=== PATIENT | female | born 1990 | race Caucasian/White ===

== ENCOUNTER 2021-05-14 05:53 | Inpatient (IN) | payer OTHER, SELFPAY ==
[2021-05-14] VITALS (12 sets, daily range): BP systolic 123–162; BP diastolic 80–109; PULSE 70–125; RESP 16–18; TEMP 36.3–37.3; O2SAT 96–103; BMI 40.7
--- NOTE | 2021-05-14 | GALL_PTH ---
PATIENT: KALEIGH BENNETT LOC: MS3 U#:[id number] AGE/SX: 30/F ROOM: [facility] [place] RE05/14/[address]: Dr. Nacho Singh MD : 1990 BED: 1 DIS: 05/15/2021 SPEC #: [id number] RECD: 05/15/21 08:16 STATUS: NICHOLE GANT #: [id number] AUGIE: 05/14/21 00:[address]: Nacho Singh DEPT: SURGICAL PATHOLOGY RECD BY: Masoud Noble ENTERED: 05/15/21 11:12 SP TYPE: GIANNI KENDRICK DR: Dr. Dharmesh Arreola, DO No Primary Care Phys Tissues: Gallbladder, NOS Procedures: Surgery Specimen Level III HEADER OPERATION: Laparoscopic cholecystectomy PRE-OP DIAGNOSIS: Cholelithiasis with choledocholithiasis TISSUE SUBMITTED: Gallbladder MICROSCOPIC DIAGNOSIS Gallbladder, cholecystectomy: Chronic cholecystitis, cholelithiasis and cholesterolosis. SJ:chacorta 05/16/2021 MICROSCOPIC DESCRIPTION Slides are reviewed. GROSS DESCRIPTION Received is one container labeled with the patient's name and designated gallbladder. The specimen consists of a gallbladder measuring 7.5 cm in length and 2.5 cm in diameter. The external surface is pink-bowman, smooth and glistening for the most part. Focally it is granular, hemorrhagic and contains cautery artifact. The gallbladder contains yellow mucoid bile and multiple brownish-green stones measuring in aggregate 4 x 4 x 1.5 cm and 0.2 to 1.5 cm in greatest dimension. The mucosa is bile-stained and without any mass lesions. The gallbladder wall measures up to 0.2 cm in thickness. The mucosa also shows several yellowish streaks consistent with cholesterolosis. A focal area also shows increased amount of subserosal fat. [employer] sections from the gallbladder and the cystic duct are submitted in one cassette. / DESTINY:chacorta 05/15/2021 TC:3 CPT: 06852
--- NOTE | 2021-05-14 06:07 | US_ITS ---
EXAM: US ABDOMEN LIMITED, RIGHT UPPER QUADRANT : 1990 CLINICAL INDICATION: PAIN TECHNIQUE: Real-time ultrasound of the right upper quadrant with image documentation. This report was created using [employer] report generation technology. COMPARISON: None. FINDINGS: LIVER: Unremarkable. There is normal echotexture. No focal hepatic lesion. No intrahepatic biliary ductal dilation. GALLBLADDER: Multiple stones in the gallbladder. No gallbladder wall thickening is demonstrated. No pericholecystic fluid. Negative sonographic Oneal's sign. COMMON BILE DUCT: Prominent common bile duct measuring 7 mm. PANCREAS: Unremarkable as visualized. No focal abnormality is demonstrated in the pancreas. No pancreatic ductal dilatation. RIGHT KIDNEY: Unremarkable. There is no hydronephrosis. No shadowing calculus. No focal lesion or perinephric collection is demonstrated. US/Gallbladder IMPRESSION: 1. Prominent common bile duct measuring 7 mm. Correlate for any laboratory evidence of acute biliary obstruction which could indicate a distal common duct stone. 2. Cholelithiasis but no sonographic evidence of acute cholecystitis. at 0742 Reported and signed by: Zheng Pepe MD Electronically Signed: Zheng Pepe MD at 7:41 EST ,
[2021-05-14 06:22] LABS: Absolute Lymphocyte Count 0.96 X10^3/uL (0.83-4.51); Absolute Neutrophil Count 3.5 X10^3/uL (2.0-7.7); Basophil# 0.02 X10^3/uL; Basophil% 0.4 % (0-1); Eosinophil# 0.04 X10^3/uL; Eosinophils% 0.8 % (0-5); Hematocrit 37.9 % (37-47); Hemoglobin 12.7 g/dL (12.0-15.0); Lymphocyte # 0.96 X10^3/ul (0.83-4.51); Lymphocyte % 19.1 % (19-41); Mean Corp Hgb Conc 33.5 g/dL (32-36); Mean Corpuscular Hgb 27.5 pg (27.0-32.0); Mean Corpuscular Volume 82.2 fL (81-99); Mean Platelet Vol. 10.5 fl (6.2-12.0); Monocyte# 0.46 X10^3/uL; Monocyte% 9.1 % (0-10); NRBC Flagged by Analyzer 0 % (0-5); Neutrophil # 3.53 X10^3/uL (2.7-7.7); Neutrophil % 70.2 % (47-70); Platelet Count 288 K/mm3 (150-450); RBC Distribution Width SD 40.9 fl (35.1-43.9); Red Blood Count 4.61 M/mm3 (4.2-5.4)
[2021-05-14] MEDS: Ondansetron 4 MG/2 ML Vial IV ×3 (06:22→22:20)
[2021-05-14] MEDS: Morphine 4 MG/ML Syringe IV (06:22)
[2021-05-14] MEDS: 0.9% Normal Saline 1,000 ML 125 ML IV ×3 (06:23→19:48)
--- NOTE | 2021-05-14 06:26 | ED.VIS.GI ---
HPI HPI - GI History of Present Illness Chief Complaint: Abd Pain Detail of Chief Complaint: Right upper quadrant pain concern for gallbladder problems Informant: patient Abdominal Pain/Flank Pain Onset: Hours (Today's episode) and Weeks (Patient states she has had right upper quadrant pain for several weeks.) Context: Sudden Onset Timing: Intermittent and Waxes and wanes Quality: Cramping Location: RUQ Current Severity: Moderate Maximum Severity: Severe Worsened by: Food ([place] and fried) Relieved by: Nothing Nausea/Vomiting/Emesis GI Symptom: Positive for Nausea Onset: Hours Diarrhea/Melena/Hematochezia GI Symptom: Negative for Diarrhea Associated Symptoms Associated Symptoms: Negative for Dysuria, Frequency and Hematuria LMP: Presently Narrative Narrative: Patient is a 30-year-old obese woman who presents with colicky right upper quadrant abdominal pain that radiates through to her back that started early this morning. She has had problems with right upper quadrant pain for the past several weeks and there is a relationship to her diet. She has pain after eating fatty or greasy meals. She has never sought medical care nor has she had an ultrasound of the right upper quadrant. She denies vomiting or diarrhea. She denies melena or hematochezia. She denies dysuria, frequency, urgency or hematuria. She denies cardiac or respiratory symptoms. Prior similar symptoms: Yes Recent Illness/Hospitalization: No PFSH PFSH Medical History no medical history no medical history Home Medications NK 05/14/21 [History Last Taken Unknown] Allergy/AdvReac Type Severity Reaction Status Date / Time No Known Allergies Allergy Verified 05/14/21 05:57 Family History no significant family his no significant family history Surgical History no surgical history no surgical history Social History (Updated 05/14/21 @ 06:[address] aDnny Abreu MD) household members: significant other Smoking Status: Never smoker substance use type: does not use ROS ROS ED Constitutional Constitutional ED: Denies chills, fever(s), subjective, sweats or weight loss ENT ENT ED: Denies ear pain, rhinorrhea or sore throat Cardiovascular Cardiovascular: Denies chest pain, palpitations or racing heartbeat Respiratory/Chest Respiratory/Chest: Denies cough, dyspnea, dyspnea on exertion or sputum Gastrointestinal Gastrointestinal: Reports abdominal pain and nausea; Denies constipation, diarrhea, melena or vomiting Genitourinary Genitourinary ED: Denies dysuria, hematuria or urinary frequency Musculoskeletal Musculoskeletal: Reports back pain; Denies arthralgias, myalgias or neck pain Integumentary Denies abscess, Abrasions or rash Neurologic Neurologic: Denies headache(s), paresthesias or weakness Endocrine Endocrinology: Denies polydipsia, polyphagia or polyuria Hematologic/Lymphatic Hematologic/Lymphatic: Denies easy bleeding or easy bruising EXAM Physical Exam Const Vital Signs: 05/14/21 05:53 Temperature 97.4 F L Temperature Source Temporal Pulse Rate 100 Respiratory Rate 18 Blood Pressure 153/109 H Blood Pressure Mean 123 Pulse Ox 98 Oxygen Delivery Method Room Air Positive well nourished, well developed, obese and unkempt General Appearance ED: unkempt and well developed; Negative for NAD or pallor Nutritional Appearance: obese HEENT Reports TM's clear and moist mucous membranes normocephalic and atraumatic Tympanic Membrane ED: Yes TM's clear Eyes PERRL and EOMs intact bilaterally General Eye ED: Negative for pale conjunctiva or scleral icterus Neck no lymphadenopathy, supple and no JVD Resp normal respiratory effort and clear to auscultation bilaterally Cardio regular rate, regular rhythm, S1 normal heart sound, S2 normal heart sound and no murmurs GI non-distended and no masses; Negative for non-tender Inspection: Negative for abdominal distention Auscultation: hypoactive bowel sounds; Negative for normoactive bowel sounds Palpation: soft, tender RUQ and Oneal's sign and guarding RUQ; Negative for rigid, hepatomegaly, splenomegaly, mass or rebound tenderness present Back/Spine no CVA tenderness Cervical Spine: Negative for cervical spine tenderness Thoracic Spine / Upper Back: Negative for thoracic spinal tenderness Lumbar Spine / Lower Back: Negative for lumbar spinal tenderness Extremity full ROM General Extremety ED: Negative for edema or tenderness General Extremity: Negative for edema Neuro CN's II-XII intact bilaterally and moves all extremities Sensorium / Orientation: alert, oriented to person, oriented to place and oriented to time Psych mental status grossly normal and thought process normal Appearance: unkempt Skin no wounds General Skin Exam: Negative for jaundice or pallor Lesions: no lesions Rashes: no rashes MDM MDM MDM Narrative Medical decision making narrative: With history of intolerance to greasy fried foods right upper quadrant pain with a clinical Oneal sign concern patient has biliary colic due to cholelithiasis versus cholecystitis. CBC, comprehensive metabolic panel and lipase was ordered as well as ultrasound. She was medicated with Zofran and morphine for her nausea and pain respectively. With an elevated ALT, AST alkaline phosphatase and total bili with multiple gallstones and common bile duct of 7.2 mm will contact surgeon on-call. Case was discussed with general surgeon on-call, Dr. Singh. He requested consultation with Dr. Arreola for decompression since her common bile duct is dilated and her liver enzymes are elevated. Dr. Arreola will be in to see patient. Lab Data Attestation: I reviewed the patient's lab results. Labs: Laboratory Results - last 24 hr 05/14/21 05/14/21 06:00 06:00 WBC 5.0 RBC 4.61 Hgb 12.7 Hct 37.9 MCV 82.2 MCH 27.5 MCHC 33.5 RDW Std Deviation 40.9 RDW Coeff of Monse 14.0 Plt Count 288 MPV 10.5 Immature Gran % (Auto) 0.400 Neut % (Auto) 70.2 H Lymph % (Auto) 19.1 Anderson % (Auto) 9.1 Eos % (Auto) 0.8 Baso % (Auto) 0.4 Absolute Neuts (auto) 3.5 Absolute Lymphs (auto) 0.96 Nucleated RBC % 0 Sodium 138 Potassium 4.2 Chloride 107 Carbon Dioxide 22.0 Anion Gap 9 BUN 9 Creatinine 0.68 Estim Creat Clear Calc 99.16 Est GFR (MDRD) Af Amer 129 Est GFR (MDRD) Non-Af 107 BUN/Creatinine Ratio 13.2 Glucose 128 H Calcium 9.2 Total Bilirubin 2.80 H AST 819 H ALT 739 H Alkaline Phosphatase 230 H Total Protein 7.4 Albumin 3.9 Globulin 3.5 Albumin/Globulin Ratio 1.1 Lipase 81 Radiography Diagnostic Testing: Ultrasound of the right upper quadrant reveals multiple gallstones with a polyp. Gallbladder wall is 0.15 mm. Common bile duct is 0.72 cm Discharge Plan Dx/Rx/DC Orders Clinical Impression: Cholelithiasis with choledocholithiasis Disposition Disposition: [facility]
[2021-05-14 06:39] LABS: ALB/GLOB Ratio 1.1 RATIO (0.9-2.4); AST(SGOT) 819 U/L (15-37); Alanine Aminotransfer ALT/SGPT 739 U/L (13-56); Albumin, Serum 3.9 g/dL (3.2-5.0); Alkaline Phosphatase 230 U/L (45-117); Anion Gap 9 (5-15); BUN 9 mg/dL (7-18); BUN/Creat Ratio 13.2 RATIO (10-20); Calcium,Total 9.2 mg/dL (8.5-10.1); Chloride 107 mmol/L (98-107); Creatinine, Serum 0.68 mg/dL (0.55-1.02); EST Glomerular Filtration Rate 107 mL/min (>60); Est Glom Filt Rate - Afr Amer 129 mL/min (>60); Estimated Creatinine Clearance 99.16 ml/min; Globulin 3.5 g/dL (2.2-4.2); Glucose 128 mg/dL (74-106); Lipase 81 U/L (73-393); Potassium 4.2 mmol/L (3.5-5.1); Protein, Total 7.4 g/dL (6.4-8.2); Sodium Level 138 mmol/L (136-145)
--- NOTE | 2021-05-14 07:46 | ED.RN ---
PT ARRIVES TO ED AWAKE AND RESPONDING TO QUESTIONS. THIS RN HAD CALLED PT MOM TO OBTAIN MORE INFORMATION DUE TO PT CONFUSION. PT NOW UNRESPONSIVE TO VERBAL STIMULI AND PAIN. DR. OMALLEY AT BEDSIDE. PT TAKEN TO CT IMMEDIATELY.
--- NOTE | 2021-05-14 09:23 | HP.PCM_ITS ---
HPI - General General Date of Admission: 05/14/21 HPI Narrative KALEIGH BENNETT, is a 30, Otherwise healthy, female who presents To [facility] ER with complaints of acute?onset abdominal pain for the last couple of days.Patient states that she has had a number of gallbladder attacks over the last 1 year. She admits she is never been formally evaluated for these issues, but related her experiences to a physician in passing and they stated they suspected her complaints were connected to her gallbladder. In response, patient changed her diet over the last several months to include less fatty foods.2 days ago, she experienced a band of pain across her upper abdomen that seemed to be focused in the right upper quadrant. When this did not completely remit she decided to seek evaluation this morning. ED work-up is notable for CBC demonstrating normal white blood cell count, but CMP that shows transaminitis and hyperbilirubinemia. Gallbladder ultrasound does not find evidence of cholecystitis with normal gallbladder wall thickness, absence of pericholecystic fluid, negative sonographic Oneal sign, but a prominent common bile duct was noted and concern for acute biliary obstruction was raised by radiology. [facility] Medical History no medical history Home Medications NK 05/14/21 [History Last Taken Unknown] Allergy/AdvReac Type Severity Reaction Status Date / Time No Known Allergies Allergy Verified 05/14/21 05:57 Family History no significant family his Surgical History no surgical history Social History (Updated 05/14/21 @ 06:[address] Danny Abreu MD) household members: significant other Smoking Status: Never smoker substance use type: does not use Vital Signs Vital Signs Vital Signs: 05/14/21 05:53 05/14/21 07:43 05/14/21 08:59 Temperature 97.4 F L 97.4 F L 98.3 F Temperature Source Temporal Temporal Temporal Pulse Rate 100 90 83 Respiratory Rate 18 16 18 Blood Pressure 153/109 H 137/90 H 123/80 H Blood Pressure Mean 123 105 94 Blood Pressure Source Monitor Blood Pressure Position Semi-Fowlers Blood Pressure Location Right Arm Pulse Ox 98 99 98 Oxygen Delivery Method Room Air Room Air Room Air 05/14/21 09:05 Temperature Temperature Source Pulse Rate Respiratory Rate Blood Pressure Blood Pressure Mean Blood Pressure Source Blood Pressure Position Blood Pressure Location Pulse Ox Oxygen Delivery Method Room Air Weight Weight: 230 lb 2.601 oz Body Mass Index (BMI) 40.7 Physical Exam Const alert, oriented x3 and no apparent distress General Appearance: cooperative GI GI Narrative: Obese, no scars, nondistended, soft, only mildly tender to palpation in the right upper quadrant with negative Oneal sign Results Lab / Micro Data Result Diagrams: 05/14/21 06:00 05/14/21 06:00 Labs: Laboratory Results - last 24 hr 05/14/21 06:00: WBC 5.0, RBC 4.61, Hgb 12.7, Hct 37.9, MCV 82.2, MCH 27.5, MCHC 33.5, RDW Std Deviation 40.9, RDW Coeff of Monse 14.0, Plt Count 288, MPV 10.5, Immature Gran % (Auto) 0.400, Neut % (Auto) 70.2 H, Lymph % (Auto) 19.1, [place] % (Auto) 9.1, Eos % (Auto) 0.8, Baso % (Auto) 0.4, Absolute Neuts (auto) 3.5, Absolute Lymphs (auto) 0.96, Nucleated RBC % 0 05/14/21 06:00: Sodium 138, Potassium 4.2, Chloride 107, Carbon Dioxide 22.0, Anion Gap 9, BUN 9, Creatinine 0.68, Estim Creat Clear Calc 99.16, Est GFR (MDRD) Af Amer 129, Est GFR (MDRD) Non-Af 107, BUN/Creatinine Ratio 13.2, G lucose 128 H, Calcium 9.2, Total Bilirubin 2.80 H, AST 819 H, ALT 739 H, Alkaline Phosphatase 230 H, Total Protein 7.4, Albumin 3.9, Globulin 3.5, Albumin/Globulin Ratio 1.1, Lipase 81 Radiology Impression Gallbladder Ultrasound 05/14/21 06:07 IMPRESSION: 1. Prominent common bile duct measuring 7 mm. Correlate for any laboratory evidence of acute biliary obstruction which could indicate a distal common duct stone. 2. Cholelithiasis but no sonographic evidence of acute cholecystitis. at 0742 Reported and signed by: Zheng Pepe MD Electronically Signed: Zheng Pepe MD at 7:41 EST , Assessment & Plan Assessment/Plan (1) Cholelithiasis with choledocholithiasis: PLAN: This is a 30-year-old female who presents with what is described as a number of colicky right upper quadrant episodes in the past 1 year that have been attributed to gallbladder but without formal medical evaluation and with persistent discomfort for the past 2 days. Biochemistries and imaging are convincing of probable choledocholithiasis. Exam, imaging, and normal CBC suggests patient does not have cholecystitis at this time.Therefore I recommend admission with initiation of IV antibiotics to mitigate patient's risk for developing cholangitis.Requested consultation with gastroenterology for consideration of ERCP to decompress the biliary duct. Beyond this procedure, would plan for same admission cholecystectomy to reduce patient's risk for r ecurrent episode. Neuro: PRN dilaudid Pulm/CV: No current issues FEN/GI: Trend CBC, CMP, NPO except sips and chips, GI consultation Heme/ID: trend CBC, initiate Zosyn empiric coverage Endo: no current issues Proph: SCDs Dispo: Admit to inpatient care Charges/Coding Visit Charges Inpatient E&M: 68127 Init Hosp L2
--- NOTE | 2021-05-14 12:16 | RAD_ITS ---
ERCP INDICATION: Abdominal pain. FINDINGS: 1.: 34 minutes of fluoroscopy of the abdomen was utilized and operating room during an ERCP and 8 images are somewhat limited for interpretation. IMPRESSION: Fluoroscopy during ERCP. Electronically Signed: Miguel Melendez MD at 15:05 EST , RAD/ERCP Biliary/Pancreas
--- NOTE | 2021-05-14 12:17 | CON.PCM.GI_ITS ---
HPI Consult Data Date of Consult: 05/14/21 HPI Narrative HPI Narrative: KAELIGH BENNETT, is a 30 F who presents from home with worsening right upper quadrant pain. She says that she has been having this abdominal pain last 2 years. She has not had any previous work-up to determine the etiology of her abdominal pain. She has no significant past medical history and does not take medicines on a daily basis. She has not had any abdominal surgeries. She is not taking nonsteroidals. In the ED discovered to have dated bilirubin, AST and ALT and alkaline phosphatase in a cholestatic pattern. She had an ultrasound that showed a dilated common bile duct and multiple stones in the gallbladder. I was consulted for therapeutic ERCP prior to cholecystectomy. [facility] Medical History no medical history Home Medications NK 05/14/21 [History Last Taken Unknown] Allergy/AdvReac Type Severity Reaction Status Date / Time No Known Allergies Allergy Verified 05/14/21 05:57 Family History no significant family his Surgical History no surgical history Social History (Updated 05/14/21 @ 06:[address] Danny Abreu MD) household members: significant other Smoking Status: Never smoker substance use type: does not use ROS Gastrointestinal Gastrointestinal: Reports bloating and other Details: Right upper quadrant abdominal pain Physical Exam Const alert General Appearance: cooperative Orientation / Consciousness: oriented to person HEENT hearing grossly normal bilaterally Head and Scalp: normal to inspection Face and Sinus: face symmetric Nose: external nose normal Mouth: oral and palatal mucosa normal Eyes conjunctivae normal General Eye: normal appearance of both eyes Neck full ROM General: normal visual inspection Lymph Lymphatic: no lymphadenopathy noted Chest inspection of chest normal and palpation of chest normal Chest: symmetrical chest wall rise Resp normal respiratory effort Effort and Inspection: able to speak in complete sentences Cardio regular rate GI non-distended Percussion: normal to percussion Rectal Exam: deferred Neuro Speech: speech normal Gait (Neuro): normal gait Lab / Micro Data Result Diagrams: 05/14/21 06:00 05/14/21 06:00 Labs: Laboratory Results - last 24 hr 05/14/21 06:00: WBC 5.0, RBC 4.61, Hgb 12.7, Hct 37.9, MCV 82.2, MCH 27.5, MCHC 33.5, RDW Std Deviation 40.9, RDW Coeff of Monse 14.0, Plt Count 288, MPV 10.5, Immature Gran % (Auto) 0.400, Neut % (Auto) 70.2 H, Lymph % (Auto) 19.1, [place] % (Auto) 9.1, Eos % (Auto) 0.8, Baso % (Auto) 0.4, Absolute Neuts (auto) 3.5, Absolute Lymphs (auto) 0.96, Nucleated RBC % 0 05/14/21 06:00: Sodium 138, Potassium 4.2, Chloride 107, Carbon Dioxide 22.0, An ion Gap 9, BUN 9, Creatinine 0.68, Estim Creat Clear Calc 99.16, Est GFR (MDRD) Af Amer 129, Est GFR (MDRD) Non-Af 107, BUN/Creatinine Ratio 13.2, Glucose 128 H , Calcium 9.2, Total Bilirubin 2.80 H, AST 819 H, ALT 739 H, Alkaline Phosphatase 230 H, Total Protein 7.4, Albumin 3.9, Globulin 3.5, Albumin/Globulin Ratio 1.1, Lipase 81 Micro: Microbiology 05/14/21 11:00 Nasal Secretion SARS-CoV-2 Antigen (Rapid) - Final Radiology Impression Gallbladder Ultrasound 05/14/21 06:07 IMPRESSION: 1. Prominent common bile duct measuring 7 mm. Correlate for any laboratory evidence of acute biliary obstruction which could indicate a distal common duct stone. 2. Cholelithiasis but no sonographic evidence of acute cholecystitis. at 0742 Reported and signed by: Zheng Pepe MD Electronically Signed: Zheng Pepe MD at 7:41 EST , Assessment & Plan Assessment/Plan (1) Cholelithiasis with choledocholithiasis: PLAN: Patient should undergo ERCP prior to cholecystectomy. She was explained alternatives, risk, benefits including stenting bleeding, infection, sepsis, perforation, post ERCP pancreatitis and was told that she may have a temporary stent placed. She agreed to this with appropriate written consent. He is already on antibiotic therapy her pain is controlled with hydromorphone. Charges/Coding Visit Charges Inpatient E&M: 25968 Init Hosp L2
--- NOTE | 2021-05-14 12:36 | NURSING ---
pt off of floor for procedure
[2021-05-14 12:51] LABS: Internal QC Validated? YES +Cl - CLEAR BKGD; Pregnancy, Urine Negative Negative
--- NOTE | 2021-05-14 12:55 | EKG12_ITS ---
Test Reason : PRE Blood Pressure : / mmHG Vent. Rate : 090 BPM Atrial Rate : 090 BPM P-R Int : 154 ms QRS Dur : 088 ms QT Int : 354 ms P-R-T Axes : 047 001 025 degrees QTc Int : 433 ms Normal sinus rhythm Normal ECG Confirmed by AVIS MONROY, QUINTIN ([id number]), newspaper editor managing CRISTINO ART ([id number]) on 05/18/2021 8:32:55 AM Referred By: PACU Confirmed By:QUINTIN ALBARRAN MD
--- NOTE | 2021-05-14 14:32 | OP.CCLET_ITS ---
05/14/2021 No Primary Care Physician Re : ERCP procedure for Lilian Watkins Dear Care Physician This procedure was performed on Friday, May 14, 2021. My impressions and recommendations are as follows: Impressions : - The entire main bile duct was dilated, with a stone causing an obstruction. - Choledocholithiasis was found. Complete removal was accomplished by biliary sphincterotomy and balloon extraction. - A biliary sphincterotomy was performed. - The biliary tree was swept. - Non-bleeding duodenal diverticulum. Recommendations : My findings are described in the full procedure note, which is enclosed. If I can be of further assistance, please feel free to contact me at . Sincerely, Dharmesh Arreola, 05/14/2021 2:31:23 PM This report has been signed electronically.
--- NOTE | 2021-05-14 14:32 | OP.ERCP_ITS ---
Patient Name: Lilian Watkins Procedure Date: 05/14/2021 1:50 PM Date of : 1990 Age: 30 Procedure: ERCP Indications: Bile duct stone(s) Providers: Dharmesh Arreola DO Medicines: General Anesthesia Patient Profile: This is a 30 year old female. Refer to note in patient chart for documentation of history and physical. Patient has symptoms of acute right upper quadrant abdominal pain. The symptoms first began ,. This patient has no history of previous ERCP. Complications: No immediate complications. Procedure: Pre-Anesthesia Assessment: - Prior to the procedure, a History and Physical was performed, and patient medications and allergies were reviewed. The risks and benefits of the procedure and the sedation options and risks were discussed with the patient. All questions were answered and informed consent was obtained. Patient identification and proposed procedure were verified in the pre-procedure area. Mental Status Examination: alert and oriented. Airway Examination: normal oropharyngeal airway and neck mobility. Respiratory Examination: clear to auscultation. CV Examination: normal. Prophylactic Antibiotics: The patient does not require prophylactic antibiotics. Prior Anticoagulants: The patient has taken no previous anticoagulant or antiplatelet agents. ASA Grade Assessment: II - A patient with mild systemic disease. After reviewing the risks and benefits, the patient was deemed in satisfactory condition to undergo the procedure. The anesthesia plan was to use moderate sedation / analgesia (conscious sedation). Immediately prior to administration of medications, the patient was re-assessed for adequacy to receive sedatives. The heart rate, respiratory rate, oxygen saturations, blood pressure, adequacy of pulmonary ventilation, and response to care were monitored throughout the procedure. The physical status of the patient was re-assessed after the procedure. After obtaining informed consent, the scope was passed under direct vision. Throughout the procedure, the patient's blood pressure, pulse, and oxygen saturations were monitored continuously. The duodenoscope was introduced through the mouth, and advanced to the duodenum and used to inject contrast into the bile duct. The ERCP was accomplished without difficulty. The patient tolerated the procedure well. Moderate Sedation: Moderate (conscious) sedation was personally administered by an anesthesia professional. The following parameters were monitored: oxygen saturation, heart rate, blood pressure, and response to care. Total physician intraservice time was 15 minutes. Scope In: 1:59:01 PM Scope Out: 2:16:44 PM Total Procedure Duration Time 0 hours 17 minutes 43 seconds Findings: The psychologist film was normal. The esophagus was successfully intubated under direct vision. The scope was advanced to a normal major papilla in the descending duodenum without detailed examination of the pharynx, larynx and associated structures, and upper GI tract. The upper GI tract was grossly normal. The bile duct was deeply cannulated with the short-nosed traction sphincterotome. Contrast was injected. I personally interpreted the bile duct images. There was brisk flow of contrast through the ducts. Opacification of the main bile duct was successful. The maximum diameter of the ducts was 7 mm. The lower third of the main bile duct contained one stone, which was 3 mm in diameter. The main bile duct was diffusely dilated, with a stone causing an obstruction. The largest diameter was 5 mm. A straight Roadrunner wire was passed into the biliary tree. A 5 mm biliary sphincterotomy was made with a traction (standard) sphincterotome using ERBE electrocautery. The sphincterotomy oozed blood. The biliary tree was swept with a 12 mm balloon starting at the lower third of the main duct. Sludge was swept from the duct. All stones were removed. One 10 Fr by 5 cm temporary stent with a single external flap and a single internal flap was placed 5 cm into the common bile duct. Bile flowed through the stent. The stent was in good position. Impression: - The entire main bile duct was dilated, with a stone causing an obstruction. - Choledocholithiasis was found. Complete removal was accomplished by biliary sphincterotomy and balloon extraction. - A biliary sphincterotomy was performed. - The biliary tree was swept. - Non-bleeding duodenal diverticulum. Procedure Code(s): --- Professional --- 12066, Endoscopic retrograde cholangiopancreatography (ERCP); with placement of endoscopic stent into biliary or pancreatic duct, including pre- and post-dilation and guide wire passage, when performed, including sphincterotomy, when performed, each stent 91404, Endoscopic retrograde cholangiopancreatography (ERCP); with removal of calculi/debris from biliary/pancreatic duct(s) 60430, Endoscopic catheterization of the biliary ductal system, radiological supervision and interpretation CPT copyright 2017 [employer]. All rights reserved. The codes documented in this report are preliminary and upon clinical coder review may be revised to meet current compliance requirements. Dharmesh Arreola DO 05/14/2021 2:31:23 PM This report has been signed electronically. Number of Addenda: 0 Note Initiated On: 05/14/2021 1:50 PM
[2021-05-14] MEDS: Bupivacaine Mpf 0.5% 30 ML VIAL (14:48)
--- NOTE | 2021-05-14 15:56 | PCM.OPRPT ---
Report of Operation Date of Procedure: 05/14/21 Description of Procedure: After completion of the patient's ERCP, she was placed supine on the operating room table and transferred to the operating room for her cholecystectomy. Anesthesia was continued and sequential compression devices were placed. The chart was checked, and it appeared patient was due for redosing of her continuous antibiotics so this was ordered. Patient's abdomen was prepped and draped in usual sterile fashion. A formal timeout was conducted to confirm both patient and the procedure. Procedure was begun with a supraumbilical incision which was extended deeply down to the level of the fascia. The fascia was elevated and incised, as well as the peritoneum. A finger sweep was performed to ensure there were no underlying adhesions and a 12 mm balloon trocar was inserted. Pneumoperitoneum was established at 15 mmHg. 3 additional trochars were placed in the epigastrium (12 mm) and in the right upper quadrant (2 x 5 mm). Inspection of the peritoneum revealed no inadvertent injury to the viscera below. The gallbladder was visualized with very mild inflammation particularly around the neck. The gallbladder fundus was then grasped and elevated cephalad. Then, using careful dissection the peritoneum was opened and the structures of the hepatocystic triangle were delineated. This required complete clearance of the cystic plate as the cystic artery appeared to arise from the hepatic artery aberrantly. Once the critical view of safety was obtained, the cystic duct was triply clipped and sharply divided. The same process was used for the cystic artery, taking care not to impinge upon the lumen that proceeded to the hepatic parenchyma. The gallbladder was then removed from the gallbladder fossa with the use of electrocautery. Selective electrocautery was used to obtain hemostasis in the gallbladder fossa. During this extirpation, there is a small rent made in the gallbladder wall resulting in a few drops of bile contamination locally. The gallbladder was placed in an Endo Catch bag and removed from the peritoneum. Hemostasis was again confirmed. Pneumoperitoneum was evacuated and the fascia of the 12 mm port sites was closed with #1 Vicryl in a [id number] fashion. A total of 30 mL of anesthetic was injected at the port sites for postoperative pain control. The skin of each port site was then closed in subcuticular fashion using 4-0 Monocryl. Steri-Strips and bandages were applied as dressings. Patient tolerated the procedure well without any apparent complications. On emergence from their anesthetic, the patient was taken to PACU for ongoing recovery. Procedures Digestive 40xxx-49xxx: 59025 Laparoscopic cholecystectomy
[2021-05-14] MEDS: HYDROmorphone 0.5 MG/0.5 ML SYRINGE IV (22:20)
[2021-05-15] MEDS: 0.9% Normal Saline 1,000 ML 125 ML IV ×2 (03:48→05:12)
[2021-05-15 05:14] VITALS: BP 142/92; PULSE 91; RESP 18; TEMP 36.7; O2SAT 95
[2021-05-15 06:09] LABS: Absolute Lymphocyte Count 0.92 X10^3/uL (0.83-4.51); Absolute Neutrophil Count 6.3 X10^3/uL (2.0-7.7); Basophil# 0.02 X10^3/uL; Basophil% 0.3 % (0-1); Hematocrit 33.9 % (37-47); Hemoglobin 10.8 g/dL (12.0-15.0); Lymphocyte # 0.92 X10^3/ul (0.83-4.51); Lymphocyte % 11.8 % (19-41); Mean Corp Hgb Conc 31.9 g/dL (32-36); Mean Corpuscular Hgb 26.5 pg (27.0-32.0); Mean Corpuscular Volume 83.3 fL (81-99); Mean Platelet Vol. 10.1 fl (6.2-12.0); Monocyte# 0.55 X10^3/uL; Monocyte% 7.1 % (0-10); NRBC Flagged by Analyzer 0 % (0-5); Neutrophil # 6.26 X10^3/uL (2.7-7.7); Neutrophil % 80.4 % (47-70); Platelet Count 258 K/mm3 (150-450); RBC Distribution Width CV 14.4 % (11.6-14.6); RBC Distribution Width SD 43.6 fl (35.1-43.9); Red Blood Count 4.07 M/mm3 (4.2-5.4); White Blood Count 7.8 K/mm3 (4.4-11.0)
[2021-05-15 06:40] LABS: ALB/GLOB Ratio 0.8 RATIO (0.9-2.4); AST(SGOT) 273 U/L (15-37); Alanine Aminotransfer ALT/SGPT 522 U/L (13-56); Albumin, Serum 3.1 g/dL (3.2-5.0); Alkaline Phosphatase 189 U/L (45-117); Anion Gap 7 (5-15); BUN 9 mg/dL (7-18); BUN/Creat Ratio 14.6 RATIO (10-20); Calcium,Total 8.2 mg/dL (8.5-10.1); Chloride 111 mmol/L (98-107); Creatinine, Serum 0.62 mg/dL (0.55-1.02); EST Glomerular Filtration Rate 120 mL/min (>60); Est Glom Filt Rate - Afr Amer 145 mL/min (>60); Estimated Creatinine Clearance 108.76 ml/min; Globulin 3.7 g/dL (2.2-4.2); Glucose 104 mg/dL (74-106); Magnesium 2.1 mg/dL (1.6-2.6); Phosphorus 3.1 mg/dL (2.5-4.9); Potassium 3.9 mmol/L (3.5-5.1); Protein, Total 6.8 g/dL (6.4-8.2); Sodium Level 139 mmol/L (136-145)
[2021-05-15 08:52] VITALS: BP 133/93; PULSE 65; RESP 18; TEMP 37.1; O2SAT 99
--- NOTE | 2021-05-15 10:40 | CASEMGMT ---
RN KONRAD Face to Face with patient for initial transition planning/care coordination assessment. RN CM introduced self and role at [facility]. Patient lying in bed, alert and oriented. Patient willing to participate in assessment and is able to answer all questions appropriately. Care providers, pharmacy, and demographics verified. Patient wishes to discharge home, denies need for home health at this time. Patient states he has no further needs or concerns at this time. CM to follow for discharge planning needs that may arise. PCP: No PCP, list provided Specialists: none Preferred Pharmacy: [facility] Insurance: none Prescription Benefit: none Living Will/HPOA: none LNOK: sister, brother, mother Living Arrangements: Patient lives with sister in a 2 story home with bed and bath on first floor. Patient is independent and able to ambulate stairs. Transportation: self, sister, mother DME/HHC: patient denies DME or previous HHC. Disposition Plan: Patient to discharge home with family support and follow-up plans in place. Holley VO, RN, CM
[2021-05-15] MEDS: Ibuprofen 400 MG Tablet PO (11:53)
--- NOTE | 2021-05-15 12:52 | PCM.DC ---
Discharge Instructions Diet Discharge Diet: No restrictions Activity Discharge Activity: May Not Drive (No driving while using narcotic pain medication) and May Shower Ice area for (Minutes): 20 Lifting Restrictions: No lifting greater than 15 pounds for 2 weeks after surgery Dressing / Incision Call your doctor if your incision/area has: Continuous Slow Oozing, Sudden Increased Bleeding, Increased Pain/ Swelling, Increased Redness, Foul Smelling Discharge and Swelling at the incision site Call your doctor if you observe: Fever of 101 or Higher Remove Dressing in: 1 day Additional Dressing/Incision Instructions:: Please leave Steri-Strips intact until they fall off spontaneously or are taken off at your follow-up visit Follow Up Care Please Follow Up With: Nacho Singh MD When: Within 1 week of hospital discharge Test Results: Test results from this visit will be discussed in further detail at your follow-up appointment, if applicable. Discharge Plan Admission Admit Date/Time: 05/14/21 08:35 Primary Reason for Your Visit: Choledocholithiasis Attending Provider: Nacho Singh Primary Care Provider: Care Physician,No Primary Consulting Providers: Dharmesh Arreola Instructions Patient Instructions: Cholecystectomy Laparoscopic Dc Discharge Orders/Prescriptions Prescriptions: New oxycodone 5 mg Tablet 5 mg PO Q6H PRN PRN (Reason: Pain Score 6-10) 3 Days Qty: 10 RF: 0 Referrals / Follow Up: Care Physician,No Primary [Primary Care Provider] -
--- NOTE | 2021-05-15 12:57 | PCM.DC.SUM ---
Providers Date of Admission: 05/14/21 Primary Care Physician: Dona Primary Care Phys Consultations 05/14/21 10:26 Consult: Gastroenterology Routine Consulting Provider: Dharmesh Arreola Reason for Consult: Choledocholithiasis EMERGENT Consult: No MD Notified: Yes Date Notified: 05/14/21 Time Notified: 08:26 Method of Notification: Verbal Reason For Visit: CHOLEDOCHOLITHIASIS Diagnosis Discharge Diagnosis (1) Cholelithiasis with choledocholithiasis: Status: Acute Code(s): K80.70 - Calculus of gallbladder and bile duct without cholecystitis without obstruction Medications at Discharge Home Medications oxycodone 5 mg PO Q6H PRN PRN 3 Days #10 tab 05/15/21 Hospital Course Operations cholecystecomy and ERCP Summary of Care Provided Hospital Course: Patient is a 30-year-old female who presented early on 05/14/2021 to the emergency department with signs and symptoms of choledocholithiasis. Once this diagnosis was made, IV antibiotics covering enteric pathogens were empirically started. Gastroenterology consultation was made and patient was set up for ERCP with biliary duct decompression. In an effort he capitalize on the patient's anesthetic, I consented the patient for cholecystectomy with possible cholangiography to directly follow the ERCP. Thus once the ERCP was completed, the patient was transferred to a second operating room and underwent an uncomplicated laparoscopic cholecystectomy. She was then returned to the [facility] floor for clinical observation following these procedures. Morning of postoperative day 1, the patient's laboratories were reassuring and were appropriately downtrending to confirm relief of ductal obstruction. Patient had minimal discomfort from her surgical site and confirmed that she had return of bowel function. She was seen later in the day of postoperative day 1 and confirmed tolerance of a regular diet and desired to be discharged. Given her clinical improvements, this request was granted, but not before review of postoperative expectations, wound care instructions, and expectations for return to work. Physical Exam Const alert and oriented x3 General Appearance: cooperative GI GI Narrative: Soft, nondistended, minimally tender to palpation about operative sites. These port site dressings remain clean dry and intact Weight / BMI Weight Weight: 230 lb 2.601 oz Body Mass Index (BMI) 40.7 ABG / Lab / Microbiology Data Result Diagrams: 05/15/21 05:28 05/15/21 05:28 Laboratory: Laboratory Results - last 24 hr 05/15/21 05:28: WBC 7.8, RBC 4.07 L, Hgb 10.8 L, Hct 33.9 L, MCV 83.3, MCH 26.5 L, MCHC 31.9 L, RDW Std Deviation 43.6, RDW Coeff of Monse 14.4, Plt Count 258, MPV 10.1, Immature Gran % (Auto) 0.400, Neut % (Auto) 80.4 H, Lymph % (Auto) 11.8 L, [place] % (Auto) 7.1, Eos % (Auto) 0.0, Baso % (Auto) 0.3, Absolute Neuts (auto) 6.3, Absolute Lymphs (auto) 0.92, Nucleated RBC % 0 05/15/21 05:28: Sodium 139, Potassium 3.9, Chloride 111 H, Carbon Dioxide 21.0, Anion Gap 7, BUN 9, Creatinine 0.62, Estim Creat Clear Calc 108.76, Est GFR (MDRD) Af Amer 145, Est GFR (MDRD) Non-Af 120, BUN/Creatinine Ratio 14.6, Glucose 104, Calcium 8.2 L, Phosphorus 3.1, Magnesium 2.1, Total Bilirubin 0.80, AST 273 H, ALT 522 H, Alkaline Phosphatase 189 H, Total Protein 6.8, Albumin 3.1 L, Globulin 3.7, Albumin/Globulin Ratio 0.8 L Microbiology: Microbiology 05/14/21 11:00 Nasal Secretion SARS-CoV-2 Antigen (Rapid) - Final Radiography Diagnostic Testing: Radiology Impression Endo Retro Cholangiopancreatogram 05/14/21 12:16 D/C Instructions Discharge Diet: No restrictions Ice area for (Minutes): 20 Call your doctor if your incision/area has: Continuous Slow Oozing, Sudden Increased Bleeding, Increased Pain/ Swelling, Increased Redness, Foul Smelling Discharge and Swelling at the incision site Call your doctor if you observe: Fever of 101 or Higher Additional Dressing/Incision Instructions: Please leave Steri-Strips intact until they fall off spontaneously or are taken off at your follow-up visit Please Follow Up With: Nacho Singh MD When: Within 1 week of hospital discharge Meaningful Use Info Meaningful Use Diagnoses (Choose all that apply): None applicable Discharge Plan Admission Admit Date/Time: 05/14/21 08:35 Primary Reason for Your Visit: Choledocholithiasis Attending Provider: Nacho Singh Primary Care Provider: Care Physician,No Primary Consulting Providers: Dharmesh Arreola Instructions Patient Instructions: Cholecystectomy Laparoscopic Dc Discharge Orders/Prescriptions Prescriptions: New oxycodone 5 mg Tablet 5 mg PO Q6H PRN PRN (Reason: Pain Score 6-10) 3 Days Qty: 10 RF: 0 Referrals / Follow Up: Care Physician,No Primary [Primary Care Provider] -
[2021-05-15 13:42] VITALS: BP 130/79; PULSE 81; RESP 16; TEMP 36.5; O2SAT 95
== END 2021-05-15 13:58 | DRG 419 ==
LOC: ED 07:33 → MS3 09:06
PROVIDERS: Anesthesiology; Internal Medicine Gastroenterology; Admitting Provider Surgery; Emergency Provider Emergency Medicine; Visit Provider Surgery
PROC: 0FT44ZZ Resection of Gallbladder, Percutaneous Endoscopic Approach (ICD-10-PCS; CPT 47610; principal; 2021-05-14 13:00)
PROC: 0FC98ZZ Extirpation of Matter from Common Bile Duct, Via Natural or Artificial Opening Endoscopic (ICD-10-PCS; CPT 43260; principal; 2021-05-14 15:45)
DX: K80.70 Calculus of gallbladder and bile duct without cholecystitis without obstruction (principal); K57.10 Diverticulosis of small intestine without perforation or abscess without bleeding; K83.8 Other specified diseases of biliary tract
CPT/HCPCS: 36415; 74330; 76705; 80053; 81025; 83690; 83735; 84100; 85025; 87426; 88304; 93005; 99283; J7030; A4216; C1769; J2405

== ENCOUNTER 2023-03-14 10:38 | Emergency (ER) | payer OTHER, SELFPAY ==
[2023-03-14 10:39] VITALS: BP 184/106; PULSE 123; RESP 18; TEMP 36.5; O2SAT 100; BMI 43.3
--- NOTE | 2023-03-14 10:58 | CT_ITS ---
STUDY: CT SOFT TISSUE NECK WITH CONTRAST REASON FOR EXAM: Female, 32 years old. Left peritonsillar abscess RADIATION DOSAGE (If Supplied By Facility): CTDIvol = ( 19.63 ) mGy, DLP = ( 908.04 ) mGy TECHNIQUE: The patient was scanned in a multi-detector CT scanner. High resolution transaxial imaging was performed following intravenous administration of 100 CC ISOVUE 300. Sagittal and coronal images were reconstructed. Individualized dose optimization techniques were used for this CT. COMPARISON: None. FINDINGS: Normal bilateral parotid glands. Normal bilateral mobile equipment servicer spaces. Normal bilateral parapharyngeal spaces. Normal bilateral carotid spaces. Normal bilateral sublingual and submandibular glands and spaces. Normal visualized nasopharynx. Normal retropharyngeal space. Normal perivertebral space. Diffuse enlargement of the left faucial tonsils with the findings suggestive of 1.6 cm x 1.2 cm abscess at its base. This causes deformity of the left side of the oropharynx. The visualized tongue, tongue base and oropharynx are normal. The visualized cervical lymph nodes (levels I-) are within normal size limits, and maintain normal morphology. There is no demonstrated solid or cystic mass lesion. There is no abnormal contrast enhancement. Normal epiglottis, bilateral vallecula and hypopharynx. The pre-epiglottic and paraglottic adipose spaces are normal. Normal visualized bilateral piriform sinuses, aryepiglottic folds, vocal cords, and arytenoid-cricoid articulations. Normal subglottic trachea. Normal bilateral lobes of the thyroid gland. Normal visualized pulmonary apices. Partial opacification of the maxillary sinuses bilaterally. Opacification of the ethmoid sinuses. Air-fluid level in the sphenoid sinuses. Opacification of the right frontal sinus. Normal visualized cervical spine. CT/Soft Tissue Neck WITH Contrast IMPRESSION: Diffuse enlargement of the left faucial tonsils with no evidence of a 1.6 cm x 1.2 cm abscess at its base. This causes deformity and mild narrowing of the oropharynx. Bilateral maxillary, ethmoid and sphenoid sinusitis. Electronically Signed: Ismael So MD at 11:42 EST ,
--- NOTE | 2023-03-14 11:00 | EX.ED.VIS.UR ---
HPI HPI - URI History of Present Illness Chief Complaint: Sore Throat Informant: patient Onset/Context/Timing Onset: Today and Yesterday Context: Gradual Onset Timing: Continuous Current Severity: Moderate Maximum Severity: Moderate Worsened by: Swallowing, Eating Solids and Drinking Liquids Narrative Narrative: 32-year-old female no significant past medical history. States she has had sore throat for the last 2 to 3 days progressively worsening with pain with swallowing. She was seen in urgent care and sent in for further evaluation. Prior similar symptoms: No Recent Illness/Hospitalization: No ROS ROS ED ROS Narrative Sore throat. Review of Systems ROS Unobtainable: Denies due to encephalopathy Constitutional Constitutional ED: Denies chills or fever(s) Eyes Eyes: Denies blurry vision ENT ENT ED: Denies ear pain Cardiovascular Cardiovascular: Denies chest pain or palpitations Respiratory/Chest Respiratory/Chest: Denies cough or dyspnea Gastrointestinal Gastrointestinal: Denies abdominal pain Genitourinary Genitourinary ED: Denies dysuria or hematuria Musculoskeletal Musculoskeletal: Denies arthralgias Integumentary Denies abscess Neurologic Neurologic: Denies headache(s) Psychiatric Psychiatric: Denies anxiety or depression Endocrine Endocrinology: Denies cold intolerance Hematologic/Lymphatic Hematologic/Lymphatic: Denies easy bleeding, easy bruising or lymphadenopathy Allergic/Immunologic Allergic/Immunologic ED: Denies mouth swelling, tongue swelling, urticaria or other PFSH PFSH Medical History no medical history no medical history Home Medications clindamycin HCl 300 mg capsule 300 mg PO Q6H 10 days #40 caps 03/14/23 [Rx Last Taken Unknown] dexamethasone 6 mg tablet 6 mg PO DAILY #7 tabs 03/14/23 [Rx Last Taken Unknown] Allergy/AdvReac Type Severity Reaction Status Date / Time No Known Allergies Allergy Verified 03/14/23 10:39 Surgical History History of cholecystectomy no surgical history Social History household members: significant other Smoking Status: Never smoker substance use type: does not use EXAM Physical Exam Narrative Exam Narrative: 32-year-old female no acute distress. Vital signs stable afebrile. Pulse ox 100% on room air no hypoxia. She has painful swallowing. No trouble breathing. H EENT exam posterior pharynx erythematous. Bilateral exudate left peritonsillar bed is much more large than the right and distorted medially. No stridor. Neck she has tenderness in the left peritonsillar bed lymphadenopathy. Trachea midline. Lungs clear to auscultation. Heart regular rhythm rate about 120 no murmur. Abdomen soft nontender normal bowel sounds no peritoneal signs. No axillary nor inguinal lymphadenopathy. Moves all 4 extremities. Calves are nontender no edema. Neurologically she is awake and alert. Const Vital Signs: 03/14/23 10:39 Temperature 97.7 F L Temperature Source Temporal Pulse Rate 123 H Respiratory Rate 18 Blood Pressure 184/106 H Blood Pressure Mean 132 Pulse Ox 100 Oxygen Delivery Method Room Air Positive well nourished and well developed; Negative for cachectic or contractures General Appearance ED: well developed and NAD; Negative for cachectic, contractures, cyanotic, diaphoretic or pallor Nutritional Appearance: Negative for cachectic HEENT Reports moist mucous membranes; Denies dry mucous membranes normocephalic and atraumatic; Negative for scalp tenderness Face and Sinus: Negative for sinus tenderness Mouth ED: No dry mucous membranes Mouth: No dry mucous membranes Teeth and Gingiva: Negative for caries Throat: tonsils abnormal and posterior oropharynx abnormal; Negative for posterior oropharynx normal Eyes PERRL and EOMs intact bilaterally General Eye ED: Negative for pale conjunctiva, scleral icterus or other Neck No no lymphadenopathy, supple, no meningeal signs and no JVD General: lymphadenopathy Resp normal respiratory effort and clear to auscultation bilaterally Effort and Inspection: Negative for retractions Auscultation: Negative for rales, rhonchi or wheezes Cardio S1 normal heart sound, S2 normal heart sound and no murmurs Rate: tachycardic Rhythm: regular rhythm GI non-tender, non-distended and no masses Inspection: Negative for abdominal distention Auscultation: normoactive bowel sounds Palpation: soft; Negative for tender or guarding Back/Spine no CVA tenderness and normal ROM General Back: Negative for CVA tenderness Cervical Spine: Negative for cervical spine tenderness Thoracic Spine / Upper Back: Negative for thoracic spinal tenderness Lumbar Spine / Lower Back: Negative for lumbar spinal tenderness Sacrum: Negative for tenderness Extremity normal to inspection and full ROM General Extremety ED: Negative for cyanosis, tenderness or other findings General Extremity: Negative for cyanosis or other findings Neuro oriented x3 and CN's II-XII intact bilaterally Sensorium / Orientation: oriented to person, oriented to place and oriented to time; Negative for orientation impaired, lethargic or stuporous Motor Exam: strength 5/5 throughout Psych mental status grossly normal Appearance: Negative for other Attitude: No agitated Mood & Affect: Negative for depressed, anxious or tearful Skin General Skin Exam: Negative for jaundice or pallor Lesions: no lesions Rashes: no rashes Trauma: Negative for abrasion, laceration or puncture MDM MDM MDM Narrative Medical decision making narrative: 32-year-old female has at least tonsillitis suspect strep rule out peritonsillar abscess. CT and labs are pending. She did not want a thing for pain at this time. Repeat exam at 1:05 PM doing well. I spoke with ENT Dr. Golden Maldonado. Patient be started on clindamycin. Decadron. First dose of each given here. I did do a needlestick aspirate of the left peritonsillar region. I wrote was able to remove a small amount of blood and a very small amount of pus. Patient tolerated procedure well. She was anesthetized with topical Cetacaine spray. She will follow-up with ENT tomorrow they will see her in the office. Warm salt water gargling. Motrin and Tylenol for pain. History & Record Review Discussion w/independent historian: Patient and Family Additional record(s) reviewed:: Prior inpatient record, Prior outpatient record and Prior ED visit Lab Data Attestation: I reviewed the patient's lab results. Lab results narrative: CBC shows an elevated white count of 15.4. H&H of 12 and 37. Platelets 311. Electrolytes show a gap of 9 normal BUN and creatinine. Glucose 99. CT soft tissue of the neck shows a 1.2 x 1.6 left peritonsillar abscess. Airway is patent. Labs: Laboratory Results - last 24 hr 03/14/23 11:10 WBC 15.4 H RBC 4.47 Hgb 12.2 Hct 37.3 MCV 83.4 MCH 27.3 MCHC 32.7 RDW Std Deviation 38.0 RDW Coeff of Monse 12.5 Plt Count 311 MPV 9.1 Immature Gran % (Auto) 0.500 Neut % (Auto) 77.3 H Lymph % (Auto) 14.0 L [place] % (Auto) 7.8 Eos % (Auto) 0.1 Baso % (Auto) 0.3 Absolute Neuts (auto) 11.9 H Absolute Lymphs (auto) 2.15 Nucleated RBC % 0 Sodium 139 Potassium 3.6 Chloride 106 Carbon Dioxide 24.0 Anion Gap 9 BUN 9 Creatinine 0.68 Estim Creat Clear Calc 97.34 Est GFR (MDRD) Af Amer 127 Est GFR (MDRD) Non-Af 105 BUN/Creatinine Ratio 13.1 Glucose 99 Calcium 9.3 Radiography Diagnostic Testing: Clinical Impression(s) from Imaging Studies Soft Tissue Neck CT 03/14/23 10:58 IMPRESSION: Diffuse enlargement of the left faucial tonsils with no evidence of a 1.6 cm x 1.2 cm abscess at its base. This causes deformity and mild narrowing of the oropharynx. Bilateral maxillary, ethmoid and sphenoid sinusitis. Electronically Signed: Ismael So MD at 11:42 EST , Procedures Other Procedures Procedure(s): Left peritonsillar needle aspiration. Cetacaine spray. Removed a very small amount of pus and blood. Patient tolerated procedure well. Discharge Plan Triage Chief Complaint: Sore Throat ED Provider: Reji Camara Dx/Rx/DC Orders Clinical Impression: Peritonsillar abscess Instructions: ED Peritonsillar Abscess Prescriptions: New clindamycin HCl 300 mg capsule 300 mg PO Q6H 10 Days Qty: 40 0RF dexamethasone 6 mg tablet 6 mg PO DAILY Qty: 7 0RF Primary Care Provider: Care Physician,No Primary Referrals: Golden Parish MD [Med Staff - Active Staff] - 1 Day (Spoke with Dr. Golden Maldonado today. Call his office this afternoon. They will see you tomorrow morning.) Care Physician,No Primary [Primary Care Provider] - Activity Restrictions/Additional Instructions: The antibiotic clindamycin 300 mg 4 times a day till gone. Decadron which is a steroid to decrease inflammation. Salt water gargling 3 times a day. Plenty of fluids and rest. Motrin and Tylenol for pain. Call and follow-up with the ear nose and throat office. I spoke to Dr. Golden Parish. He will see you in the office tomorrow morning. Call them this afternoon to set up appointment for tomorrow. Disposition Disposition: Home, Self Care
[2023-03-14 11:19] LABS: Absolute Lymphocyte Count 2.15 X10^3/uL (0.83-4.51); Absolute Neutrophil Count 11.9 X10^3/uL (2.0-7.7); Basophil# 0.05 X10^3/uL; Basophil% 0.3 % (0-1); Eosinophil# 0.01 X10^3/uL; Eosinophils% 0.1 % (0-5); Hematocrit 37.3 % (37-47); Hemoglobin 12.2 g/dL (12.0-15.0); Lymphocyte # 2.15 X10^3/ul (0.83-4.51); Mean Corp Hgb Conc 32.7 g/dL (32-36); Mean Corpuscular Hgb 27.3 pg (27.0-32.0); Mean Corpuscular Volume 83.4 fL (81-99); Mean Platelet Vol. 9.1 fl (6.2-12.0); Monocyte# 1.19 X10^3/uL; Monocyte% 7.8 % (0-10); NRBC Flagged by Analyzer 0 % (0-5); Neutrophil # 11.88 X10^3/uL (2.7-7.7); Neutrophil % 77.3 % (47-70); Platelet Count 311 K/mm3 (150-450); RBC Distribution Width CV 12.5 % (11.6-14.6); Red Blood Count 4.47 M/mm3 (4.2-5.4); White Blood Count 15.4 K/mm3 (4.4-11.0)
[2023-03-14 11:31] LABS: Anion Gap 9 (5-15); BUN 9 mg/dL (7-18); BUN/Creat Ratio 13.1 RATIO (10-20); Calcium,Total 9.3 mg/dL (8.5-10.1); Chloride 106 mmol/L (98-107); Creatinine, Serum 0.68 mg/dL (0.55-1.02); EST Glomerular Filtration Rate 105 mL/min (>60); Est Glom Filt Rate - Afr Amer 127 mL/min (>60); Estimated Creatinine Clearance 97.34 ml/min; Glucose 99 mg/dL (74-106); Potassium 3.6 mmol/L (3.5-5.1); Sodium Level 139 mmol/L (136-145)
[2023-03-14] MEDS: Clindamycin HCl 150 MG Capsule 300 MG PO (14:27)
[2023-03-14] MEDS: dexAMETHasone 4 MG Tablet 6 MG PO (14:27)
== END 2023-03-14 14:42 | disposition home or self-care (01) ==
PROVIDERS: Emergency Provider Emergency Medicine; Visit Provider Emergency Medicine
DX: J36 Peritonsillar abscess (principal)
CPT/HCPCS: 70491; 80048; 85025; 87880; 99282; Q9967; A4216